=== PATIENT | female | born 1970 | race Caucasian/White ===

== ENCOUNTER 2019-02-17 22:28 | Emergency (ER) | payer OTHER ==
[~2019-02-17] VITALS: Ht 154.9 cm; Wt 80.3 kg
[2019-02-17 22:32] VITALS: Ht 154.9 cm; Wt 80.3 kg
[2019-02-18] MEDS ORDERED: MAGN1POW MC (02:22)
--- NOTE | 2019-02-18 02:25 | ERD ---
ER Documentation Chief Complaint Chief Complaint L sided facial twitching HPI This is a 48-year-old female complains of left facial twitching off and on for 4 days. She said that her left eye will twitch for about 3 seconds and then goes away and the to have repeated episodes. She says she is getting plenty of sleep and does not feel fatigued. There is no symptoms of numbness weakness to the face no speech change no hearing change notes changes in taste sensation, there is no symptoms in the arms or legs of weakness and numbness. ROS All systems reviewed and are negative except as per history of present illness. Medications Home Meds Active Scripts Magnesium Glycinate (Magnesium Glycinate) 1 Gm Powder, 600 MG MC DAILY for 7 Days Prov:RANDI KHAN DO 02/18/19 Allergies Allergies: Coded Allergies: No Known Allergy (Verified , 04/19/12) PMhx/Soc History of Surgery: Yes () Anesthesia Reaction: No Hx Neurological Disorder: No Hx Respiratory Disorders: No Hx Cardiac Disorders: No Hx Psychiatric Problems: No Hx Miscellaneous Medical Probl: No Hx Alcohol Use: No Hx Substance Use: No Hx Tobacco Use: No Smoking Status: Unknown if ever smoked FmHx Family History: No coronary disease Physical Exam Vitals Vital Signs Date Temp Pulse Resp B/P (MAP) Pulse Ox O2 O2 Flow FiO2 Time Delivery Rate 02/18/19 98.6 73 13 142/81 100 Room Air 00:27 (101) 02/17/19 98.1 70 12 130/80 100 Room Air 23:04 (97) 02/17/19 98.2 84 18 151/96 98 22:32 (114) Physical Exam Const: Well-developed, well-nourished Head: Atraumatic, normocephalic Eyes: Normal Conjunctiva, PERRLA, EOMI, normal sclera, no nystagmus ENT: Normal External Ears, Nose and Mouth, moist mucus membranes. Neck: Full range of motion. No meningismus, no lymphadenopathy. Resp: Clear to auscultation bilaterally, no wheezing, rhonchi, rales Cardio: Regular rate and rhythm, no murmurs, S1 S2 present Abd: Soft, non tender x 4, non distended. Normal bowel sounds, no guarding or rebound, no pulsitile abdominal masses or bruits Skin: No petechiae or rashes, no ecchymosis , no maculopapular rash Back: No midline or flank tenderness Ext: No cyanosis, or edema, FROM x 4, normal inspection, neurovascularly intact x 4 Neur: Awake and alert, STR 5/5 x 4, sensation intact x 4, no focal findings, cerebellum intact Psych: Normal Mood and Affect Const: No acute distress Head: Atraumatic Eyes: Normal Conjunctiva ENT: Normal External Ears, Nose and Mouth. Neck: Full range of motion. No meningismus. Resp: Clear to auscultation bilaterally Cardio: Regular rate and rhythm, no murmurs Abd: Soft, non tender, non distended. Normal bowel sounds Skin: No petechiae or rashes Back: No midline or flank tenderness Ext: No cyanosis, or edema Neur: Awake and alert Psych: Normal Mood and Affect Result Diagram: 02/17/196 Results 24 hrs Laboratory Tests Test 02/17/19 22:48 Sodium Level 142 mmol/L Potassium Level 3.7 mmol/L Chloride Level 101 mmol/L Carbon Dioxide Level 28 mmol/L Anion Gap 13 Blood Urea Nitrogen 10 mg/dl Creatinine 0.46 mg/dl Est Glomerular Filtrat Rate mL/min > 60 mL/min Glucose Level 332 mg/dl Calcium Level 9.1 mg/dl Magnesium Level 1.7 mg/dl Procedures/[place] [id number] Radiology Main Line: [phone] DIAGNOSTIC IMAGING REPORT Patient: SHENA AKERS : 1970 Age: 48 Sex: F [id number] DOS: 02/17/19 2258 Ordering MD: RANDI KHAN DO Location: E/R Room/Bed: PROCEDURE: CT Brain without contrast. CLINICAL INDICATION: Patient experiencing a headache. TECHNIQUE: A CT of the brain was performed from the skull base through the vertex without IV contrast. Multiplanar reformatted images were made. Images were reviewed on a PACS workstation. The CTDIvol is 38.8 mGy and the DLP is 634 mGycm. DICOM images are available. One or more of the following dose reduction techniques were utilized: 1.) Automated exposure control 2.) Adjustment of the mA +/- kV according to patient's size 3.) Use of iterative reconstruction technique. COMPARISON: None FINDINGS: Brain: No acute intracranial findings. No mass, hemorrhage, or evidence of acute infarct. There is mild parenchymal volume loss. Mild periventricular and subcortical white matter hypodensities are seen, nonspecific, likely related to chronic small vessel ischemic disease. The ventricles are otherwise normal in size and configuration. Mild intracranial atherosclerotic calcifications are noted. Bones: The skull base and calvarium are normal in appearance. Orbits: Unremarkable Soft tissues: Unremarkable Paranasal sinuses: Visualized sinuses are clear. IMPRESSION: No acute intracranial findings. Mild chronic small vessel ischemic disease. RPTAT:HCLE Physician Juvenal Date Time Electronically viewed and signed by betina Macedo Physician on 02/18/2019 02:17 cE/ CC: RANDI KHAN DO [id number] Patient's electrolytes are okay. No abnormalities there and I will discharge her home with few days trial of magnesium glycine 8 600 mg. Advised her to stay hydrated and to drink some coconut water for electrolytes Departure Diagnosis: Primary Impression: Facial twitching Condition: Stable Patient Instructions: Muscle Spasm RANDI KHAN DO Feb 18, 2019 02:25
[2019-02-18 02:26] VITALS: BP 145/88; PULSE 76; RESP 16
== END 2019-02-18 02:34 | disposition home or self-care (01) ==
LOC: E/R 22:28
DX: R25.3 Fasciculation (principal)
CPT/HCPCS: 70450; 80048; 83735

== ENCOUNTER 2019-03-05 17:09 | Emergency (ER) | payer OTHER ==
[~2019-03-05] VITALS: Ht 157.5 cm; Wt 81.2 kg
[~2019-03-05 17:09] MED LIST: MAGN1POW MC
[2019-03-05 17:12] VITALS: BP 140/78; PULSE 76; RESP 18; Ht 157.5 cm; Wt 81.2 kg
[2019-03-05] MEDS ORDERED: LORA1TAB PO (17:49)
--- NOTE | 2019-03-05 19:17 | ERD ---
ER Documentation Chief Complaint Chief Complaint LEFT EYE PAIN HPI This patient is a pleasant 48-year-old female presenting to the emergency department complaining of twitching to her left eye intermittently for the past 15 days. She does report increased stress and anxiety in her life due to having to take care of her parents who are ill. She reports insomnia every night and states she is unable to fall asleep until 6 AM. She does not report homicidal or suicidal ideation. She also reports intermittent numbness and tingling to her bilateral upper extremities. She denies any numbness or tingling at this time. She denies any unilateral weakness or deficits in her upper or lower extremities. She denies any confusion, visual disturbances, headache, diplopia, expressive aphasia, or other symptoms. The patient is presenting with her who states she has been acting completely normal at home with the exception of her left eye twitching. She denies any other symptoms at this time. ROS All systems reviewed and are negative except as per history of present illness. Medications Home Meds Active Scripts Lorazepam* (Lorazepam*) 1 Mg Tablet, 1 MG PO QHS PRN for INSOMNIA, #10 TAB Prov:CLEO GUTIERREZ PA-C 03/05/19 Magnesium Glycinate (Magnesium Glycinate) 1 Gm Powder, 600 MG MC DAILY for 7 Days Prov:RANDI KHAN DO 02/18/19 Allergies Allergies: Coded Allergies: No Known Allergy (Verified , 04/19/12) PMhx/Soc History of Surgery: Yes () Anesthesia Reaction: No Hx Neurological Disorder: No Hx Respiratory Disorders: No Hx Cardiac Disorders: No Hx Psychiatric Problems: No Hx Miscellaneous Medical Probl: No Hx Alcohol Use: No Hx Substance Use: No Hx Tobacco Use: No Smoking Status: Never smoker FmHx Family History: No diabetes Physical Exam Vitals Vital Signs Date Temp Pulse Resp B/P (MAP) Pulse Ox O2 O2 Flow FiO2 Time Delivery Rate 03/05/19 98.0 76 18 140/78 99 17:12 (98) Physical Exam Const: No acute distress Head: Atraumatic Eyes: Normal Conjunctiva. Extraocular movements intact bilaterally. No periorbital edema. The left eye has active spasm. ENT: Normal External Ears, Nose and Mouth. Neck: Full range of motion. No meningismus. Resp: Clear to auscultation bilaterally Cardio: Regular rate and rhythm, no murmurs Skin: No petechiae or rashes Back: No midline or flank tenderness Ext: No cyanosis, or edema. 5 out of 5 strength noted to bilateral upper and lower extremities. Neuro: M/S: Alert and oriented Face: EOMI, face and pharynx with normal sensation and function Motor: Normal strength throughout Sensation: Normal sensation throughout Speech: Normal Cerebel: Normal coordination Normal gait Normal finger to nose Psych: Normal Mood and Affect Procedures/MDM 48-year-old female presented to the emergency department complaining of her left eye twitching intermittently for the past 15 days. Patient's neurological examination is completely benign. Cranial nerves are intact. Patient has equal strength to her bilateral upper and lower extremities. Patient's history and examination is not concerning for CVA, TIA, intracranial hemorrhage or other emergent conditions. Patient is experiencing increased anxiety and insomnia and left eye twitching and I will treat her as an outpatient with a prescription for short course of Ativan. The patient was advised to follow-up with psychiatrist and neurologist as an outpatient if indicated. The patient was advised to return here immediately for any new or worsening or concerning symptoms. She understands and agrees with the diagnosis, plan, need for follow-up, return precautions. Patient's blood pressure was elevated (>120/80) but appears stable without evidence of hypertension emergency or urgency. The patient is to follow-up and pursue outpatient monitoring and therapy with their primary care physician within 1 week and return immediately if they have any new, worsening, or concerning symptoms. Departure Diagnosis: Primary Impression: Eye twitch Additional Impressions: Insomnia Anxiety reaction Condition: Fair Patient Instructions: Treating Insomnia, Anxiety Reaction Additional Instructions: Llame al doctor KAREEN y mary shabana MIKE PARA DENTRO DE 1-2 MCGOVERN.Dgale a la secretaria que nosotros le instruimos hacer esta mike.Avise o llame si roberts condicin se empeora antes de la mike. Regresa aqui si peor o no mejor. LCEO GUTIERREZ PA-C Mar 05, 2019 19:17
== END 2019-03-05 18:14 | disposition home or self-care (01) ==
LOC: FTE 17:09
DX: H57.89 Other specified disorders of eye and adnexa (principal); G47.00 Insomnia, unspecified
CPT/HCPCS: 99283

== ENCOUNTER 2019-03-18 21:43 | Emergency (ER) | payer OTHER ==
[~2019-03-18] VITALS: Ht 154.9 cm; Wt 79.0 kg
[~2019-03-18 21:43] MED LIST changes: +LORA1TAB PO
[2019-03-18 21:52] VITALS: Ht 154.9 cm; Wt 79.0 kg
[2019-03-19] MEDS ORDERED: AMIT10TA6 PO (02:18)
[2019-03-19] MEDS ORDERED: NAPR-985 PO (02:18)
--- NOTE | 2019-03-19 02:23 | ERD ---
ER Documentation Chief Complaint Chief Complaint numbness both hands x 2 hours. no neuro deficits. HPI This is a 48-year-old woman with a history of anxiety and facial twitching here for evaluation of paresthesias to both of her hands beginning early this morning when she had trouble sleeping. She admits to feeling anxious. She denies slurred speech, no fevers or chills, no weakness in her arms or legs, no headache or blurry vision. ROS All systems reviewed and are negative except as per history of present illness. Medications Home Meds Active Scripts Naproxen* (Naprosyn*) 500 Mg Tablet, 500 MG PO BID PRN for PAIN AND/OR INFLAMMATION, #30 TAB Prov:POPEYE ANGEL MD 03/19/19 Amitriptyline Hcl* (Amitriptyline Hcl*) 10 Mg Tablet, 10 MG PO BID, #60 TAB Prov:POPEYE ANGEL MD 03/19/19 Lorazepam* (Lorazepam*) 1 Mg Tablet, 1 MG PO QHS PRN for INSOMNIA, #10 TAB Prov:CLEO GUTIERREZ PA-C 03/05/19 Magnesium Glycinate (Magnesium Glycinate) 1 Gm Powder, 600 MG MC DAILY for 7 Days Prov:RANDI KHAN DO 02/18/19 Allergies Allergies: Coded Allergies: No Known Allergy (Verified , 04/19/12) PMhx/Soc Anxiety, hypertension History of Surgery: No Anesthesia Reaction: No Hx Neurological Disorder: No Hx Respiratory Disorders: No Hx Cardiac Disorders: No Hx Psychiatric Problems: No Hx Miscellaneous Medical Probl: No Hx Alcohol Use: No Hx Substance Use: No Hx Tobacco Use: No Smoking Status: Never smoker FmHx Family History: No diabetes Physical Exam Vitals Vital Signs Date Temp Pulse Resp B/P (MAP) Pulse Ox O2 O2 Flow FiO2 Time Delivery Rate 03/19/19 89 17 142/88 100 Room Air 02:42 (106) 03/19/19 96 16 149/96 97 Room Air 02:20 (113) 03/18/19 98.8 120 24 163/87 97 21:52 (112) Physical Exam GENERAL: Well-developed, well-nourished, anxious, afebrile NEURO: Alert and oriented 3, cranial nerves II through XII intact bilaterally, pupils equal round reactive to light, no focal deficits or facial asymmetry, sensation intact distally Strength 5/5 in upper and lower extremities bilaterally CARDIAC: Regular rate and rhythm, no murmurs rubs or gallops LUNGS: Clear bilaterally no wheezing crackles or stridor SKIN: Warm and dry to touch, no abrasions, contusions, or hematomas, no lacerations, no ecchymosis, no target lesions, and without ulcers EXTREMITIES: No clubbing cyanosis or edema, calves are bilaterally symmetrical, no Homans sign, no popliteal cord sign. Distal pulses equal and bilateral PSYCH: Anxious Results 24 hrs Current Medications Medications Dose Sig/Lobo Start Time Status Last (Trade) Ordered Route PRN Stop Time Admin Dose Reason Admin Lorazepam 0.5 mg ONCE ONCE 03/19/19 DC 03/19/19 (Ativan) PO 02:30 02:33 03/19/19 02:31 Clonidine 0.1 mg ONCE ONCE 03/19/19 DC 03/19/19 (Catapres) PO 02:30 02:33 03/19/19 02:31 Procedures/MDM I administered clonidine 0.1 mg p.o. x1 for hypertension and lorazepam 0.5 mg p.o. for anxiety. Patient feels much better at this time, and vital signs are normal, symptoms have improved. I did give strict instructions to return to the ED if symptoms continue or worsen, patient will otherwise follow-up with primary care physician. Patient understood instructions and agreed to plan. Disclaimer: Inadvertent spelling and grammatical errors are likely due to EHR/dictation software use and do not reflect on the overall quality of patient care. Also, please note that the electronic time recorded on this note does not necessarily reflect the actual time of the patient encounter. Departure Diagnosis: Primary Impression: Paresthesias Additional Impressions: Acute anxiety Hypertension Hypertension type: essential hypertension Qualified Codes: I10 - Essential (primary) hypertension Medication refill Condition: Good Patient Instructions: Anxiety Reaction Referrals: ANA LUISA CORBIN (PCP) POPEYE ANGEL MD Mar 19, 2019 02:23
[2019-03-19] MEDS ORDERED: LORAZEPAM 0.5 MG TAB PO ONE (02:30)
[2019-03-19 02:42] VITALS: BP 142/88; PULSE 89; RESP 17
== END 2019-03-19 02:48 | disposition home or self-care (01) ==
LOC: E/R 21:43
DX: R20.2 Paresthesia of skin (principal); F41.9 Anxiety disorder, unspecified; I10 Essential (primary) hypertension; R40.2142 Coma scale, eyes open, spontaneous, at arrival to emergency department; R40.2362 Coma scale, best motor response, obeys commands, at arrival to emergency department; R40.2252 Coma scale, best verbal response, oriented, at arrival to emergency department; Z76.0 Encounter for issue of repeat prescription
CPT/HCPCS: Z7502; Z7610; 99283